=== PATIENT | male | born 1975 | race Caucasian/White ===

== ENCOUNTER 2019-08-23 14:27 | Outpatient (CLI) | payer MEDICAID, SELFPAY ==
[2019-08-24 10:09] LABS: Hepatitis B Surface Ag Negative (Negative)
[2019-08-24 11:45] LABS: Hepatitis C Ab w Rflx HCV PCR Reactive (Negative)
[2019-08-25 12:45] LABS: HIV-1/2 Ag & Ab Screen Reactive (Negative)
[2019-08-25 12:52] LABS: HIV 1 Ab Diff Negative (NEGAT)
[2019-08-25 12:53] LABS: HIV 2 Ab Diff Negative (NEGAT)
[2019-08-25 14:44] LABS: HCV RNA Detection Quantitative 0 IU/mL (Undetected)
== END 2019-08-23 14:47 ==
PROVIDERS: PCP Family Medicine; Visit Provider General Practice
DX: Z20.828 Contact with and (suspected) exposure to other viral communicable diseases (principal); Z11.59 Encounter for screening for other viral diseases; Z11.4 Encounter for screening for human immunodeficiency virus [HIV]
CPT/HCPCS: 36415; 86701; 86702; 86706; 86803; 87340; 87389; 87522

== ENCOUNTER 2019-09-21 09:49 | Outpatient (CLI) | payer MEDICAID, SELFPAY ==
[2019-09-24 13:59] LABS: HIV-1 RNA Quantification 0 copies/mL (Undetected)
== END 2019-09-21 10:09 ==
PROVIDERS: PCP Nurse Practitioner Adult Health; Visit Provider Nurse Practitioner Adult Health
DX: F19.10 Other psychoactive substance abuse, uncomplicated (principal); R75 Inconclusive laboratory evidence of human immunodeficiency virus [HIV]
CPT/HCPCS: 36415; 87536